=== PATIENT | male | born 1995 | race Two or more races ===

== ENCOUNTER 2022-01-09 11:42 | Emergency (ER) | payer BC ==
--- NOTE | 2022-01-09 13:05 | NUR ---
CALLED IN ED WAITING ROOM. NO RESPONSE.
--- NOTE | 2022-01-09 13:17 | NUR ---
CALLED IN ED WAITING ROOM, NO RESPONSE. PT LEFT WITHOUT BEING SEEN.
== END 2022-01-09 13:19 | disposition left against medical advice (07) ==
LOC: ER 11:45
DX: Z53.21 Procedure and treatment not carried out due to patient leaving prior to being seen by health care provider (principal)